=== PATIENT | female | born 1950 | race Caucasian/White ===

== ENCOUNTER → 2017-01-31 | Outpatient (CLI) | payer BC ==
[~2017-01-31] MED LIST: ACTOS 15MG TAB15 MG PO; ADALAT; ADALAT CC30 MG PO; AVELOX; BYETTA 10M600 MCG/SY SC; CELEXA; EPA FISH OIL1000 MG; EVISTA 60MG60 MG/TAB PO; GLUCOPHAGE850 MG/TAB PO; GLUCOTROL 5M5 MG/TAB; GLUCOTROL 5M5 MG/TAB PO; IRON325 MG PO; JANUVIA25 MG PO; LEVEMIR FLEXPEN; LIPITOR 40MG TA40 MG PO; LOPID 600M600 MG/TAB PO; MAREPA1200 MG PO; MED FOR DEPRESSION; METFORMIN; NORCO 325 MG-51 TAB PO; PEXEVA40 MG PO; PHENERGAN 25 TA25 MG PO; PHENERGAN25 MG RC; PRILOSEC40 MG PO; PROTONIX 40MG T40 MG PO; PROTONIX20 MG PO; VICOPROFEN 7.51 TAB PO; VICTOZA6 MG/ML SC; VYTORIN; [UNRECOGNIZED DRUG - OTHER]; [UNRECOGNIZED DRUG - OTHER] PO
== END ==
LOC: MC.RAD 08:00
DX: Z12.39 Encounter for other screening for malignant neoplasm of breast (principal)

== ENCOUNTER → 2017-02-25 | Outpatient (CLI) | payer BC | LOC: COL.RAD 10:30 | DX: R74.8 Abnormal levels of other serum enzymes (principal); K75.81 Nonalcoholic steatohepatitis (NASH) ==

== ENCOUNTER → 2018-03-01 | Outpatient (CLI) | payer BC | LOC: COL.RAD 10:29 | DX: K75.81 Nonalcoholic steatohepatitis (NASH) (principal); Z90.49 Acquired absence of other specified parts of digestive tract ==

== ENCOUNTER → 2018-03-20 | Outpatient (CLI) | payer BC | LOC: MC.RAD 09:51 | DX: Z12.31 Encounter for screening mammogram for malignant neoplasm of breast (principal) ==

== ENCOUNTER 2018-03-27 19:14 | Observation (INO) | payer BC, MEDICARE ==
[~2018-03-27] VITALS: Ht 154.9 cm; Wt 69.4 kg
[2018-03-27 20:06] LABS: BASO # 0.1 (0.0-0.2); BASO % 0.7 % (0.0-2.0); EOS # 0.3 (0.0-0.7); EOS % 3.5 % (0-4.0); GRAN # 4.5 (1.4-6.5); GRAN % 63.7 % (42.2-75.2); HEMATOCRIT 32.3 % (37.0-47.0); HEMOGLOBIN 10.5 g/dl (12.5-16.0); LYMPH # 1.5 (1.2-3.4); LYMPH % 20.7 % (20.0-51.0); MEAN CELL VOLUME 84 fl (80.0-100.0); MEAN CORPUSCULAR HEMOGLOBIN 27 pg (27.0-31.0); MEAN CORPUSCULAR HGB CONC 33 g/dl (33.0-37.0); MEAN PLATELET VOLUME 10.4 fl (7.4-10.4); MONO # 0.8 (0.1-0.6); MONO % 10.6 % (1.7-9.3); PLATELET COUNT 263 K/mm3 (130-400); RED BLOOD COUNT 3.84 M/mm3 (4.10-5.30); REDCELL DISTRIBUTION WIDTH-CV 14.5 % (11.5-14.5)
[2018-03-27 20:15] LABS: ALBUMIN 4.8 gm/dL (3.5-5.0); BILIRUBIN,TOTAL 0.4 mg/dL (0.0-1.0); C-REACTIVE PROTEIN 3.4 mg/dL (0.0-0.9); CALCIUM 9.6 mg/dL (8.4-10.2); CREATININE, serum 1.37 mg/dL (0.52-1.25); TOTAL PROTEIN 8.5 gm/dL (6.4-8.2)
[2018-03-28] VITALS (8 sets, daily range): BP systolic 97–108; BP diastolic 40–58; PULSE 71–74; TEMP 97.6–98.5
[2018-03-28] MEDS ORDERED: PRINIVIL20 MG PO (04:05)
[2018-03-28] MEDS ORDERED: PAXIL CR37.5 MG PO (04:07)
[2018-03-28] MEDS ORDERED: MOTRIN 600600 MG/TAB PO (09:14)
[2018-03-28] MEDS ORDERED: PERCOCET 325 MG1 TA2 PO (09:15)
== END 2018-03-28 13:45 | disposition home or self-care (01) ==
LOC: COL.ER 19:14 → MEDICAL 21:35
PROVIDERS: Emergency Medicine
DX: K35.80 Unspecified acute appendicitis (principal); K38.8 Other specified diseases of appendix; K38.1 Appendicular concretions; E11.9 Type 2 diabetes mellitus without complications; Z79.4 Long term (current) use of insulin; I10 Essential (primary) hypertension; J45.909 Unspecified asthma, uncomplicated; K21.9 Gastro-esophageal reflux disease without esophagitis; D64.9 Anemia, unspecified; Z80.0 Family history of malignant neoplasm of digestive organs; Z80.1 Family history of malignant neoplasm of trachea, bronchus and lung; Z80.2 Family history of malignant neoplasm of other respiratory and intrathoracic organs
CPT/HCPCS: J0696; J1100; J1170; J2405; J2704; J2710; J3010; J7030; Q9967

== ENCOUNTER → 2019-03-05 | Outpatient (CLI) | payer BC ==
[~2019-03-05] MED LIST changes: +MOTRIN 600600 MG/TAB PO; +PAXIL CR37.5 MG PO; +PERCOCET 325 MG1 TA2 PO; +PRINIVIL20 MG PO
== END ==
LOC: COL.RAD 07:58
DX: K76.0 Fatty (change of) liver, not elsewhere classified (principal); Z90.49 Acquired absence of other specified parts of digestive tract

== ENCOUNTER → 2019-04-24 | Outpatient (CLI) | payer BC | LOC: MC.RAD 15:38 | DX: Z12.31 Encounter for screening mammogram for malignant neoplasm of breast (principal) ==

== ENCOUNTER → 2019-08-08 | Outpatient (CLI) | payer MEDICARE, OTHER | LOC: MC.RAD 13:00 | DX: N64.89 Other specified disorders of breast (principal); N63.20 Unspecified lump in the left breast, unspecified quadrant | CPT/HCPCS: G0279 ==

== ENCOUNTER → 2019-08-13 | Outpatient (CLI) | payer MEDICARE, OTHER | LOC: MC.RAD 09:57 | DX: N63.20 Unspecified lump in the left breast, unspecified quadrant (principal); Z98.82 Breast implant status ==

== ENCOUNTER 2019-08-28 06:44 | Day surgery (SDC) | payer MEDICARE, OTHER ==
[2019-08-28] VITALS (7 sets, daily range): BP systolic 120–142; BP diastolic 48–79; PULSE 62–78; TEMP 97.6–97.7
[~2019-08-28] VITALS: Ht 154.9 cm; Wt 69.7 kg
[~2019-08-28 06:44] MED LIST changes: +LEVEMIR FLEX100 U/ML SQ; -LEVEMIR FLEXPEN
[2019-08-28] MEDS ORDERED: LOPID 600M600 MG/TAB PO (08:17)
[2019-08-28] MEDS ORDERED: OMEGA-3 1000 MG1 CAP PO (08:20)
[2019-08-28] MEDS ORDERED: MILK THISTLE150 MG PO (08:21)
[2019-08-28] MEDS ORDERED: TYLENOL 500MG500 MG PO (08:22)
[2019-08-28] MEDS ORDERED: OZEMPIC0.25 MG/0. SQ (08:23)
[2019-08-28 08:24] LABS: CALCIUM 9.9 mg/dL (8.4-10.2); CREATININE, serum 1.43 (0.52-1.25); POTASSIUM 5.1 mmol/L (3.4-5.0)
--- NOTE | 2019-08-28 08:24 | NUR ---
TO RM 6 FROM RADIOLOGY. CALL LIGHT IN REACH AT BEDSIDE.
--- NOTE | 2019-08-28 10:01 | NUR ---
RECEIVED NEW WARM BLANKET. PATIENT RESTING QUIETLY
--- NOTE | 2019-08-28 12:08 | NUR ---
WENT TO RADIOLOGY AND BACK TO RM. PATIENT RESTING QUIETLY
[2019-08-28] MEDS ORDERED: NORCO 325 MG-51 TAB PO (17:11)
--- NOTE | 2019-08-28 17:50 | NUR ---
Arrives to room 331 from PACU with RN at side. Dressings and bandaide to Left breast CDI. Denies complaints of pain. Request coffee. at side.
--- NOTE | 2019-08-28 23:06 | NUR ---
PATIENT DISCHARGING. DRESSED INDEPENDENTLY. DRESSINGS TO L BREAST CDI. 20 ML OF DARK RED BLOOD DRAINED FROM ROSAURA. PATIENT TEACHING DONE REGARDING DRESSING CHANGES AND ROSAURA DRAIN. IV TO R HAND DISCONTINUED, BANDAID APPLIED. AMBULATED TO BATHROOM AND VOIDED WITHOUT ISSUE. PATIENT DISCHARGED AT 2049 VIA WHEELCHAIR WITH FAMILY TO HOME.
== END 2019-08-28 20:50 | disposition home or self-care (01) ==
LOC: SDCO 06:44 → JCC 17:45 → SDCO 20:50
PROVIDERS: Nurse Anesthetist, Certified Registered
DX: C50.112 Malignant neoplasm of central portion of left female breast (principal); C77.3 Secondary and unspecified malignant neoplasm of axilla and upper limb lymph nodes; F32.9 Major depressive disorder, single episode, unspecified; E78.5 Hyperlipidemia, unspecified; Z86.14 Personal history of Methicillin resistant Staphylococcus aureus infection; I12.9 Hypertensive chronic kidney disease with stage 1 through stage 4 chronic kidney disease, or unspecified chronic kidney disease; E11.22 Type 2 diabetes mellitus with diabetic chronic kidney disease; N18.9 Chronic kidney disease, unspecified; Z79.84 Long term (current) use of oral hypoglycemic drugs; Z17.0 Estrogen receptor positive status [ER+]; K75.81 Nonalcoholic steatohepatitis (NASH)
CPT/HCPCS: OP; A9541; J0690; J1100; J1815; J2250; J2405; J2704; J3010; J7030

== ENCOUNTER → 2019-09-25 | Outpatient (CLI) | payer MEDICARE, OTHER ==
[~2019-09-25] VITALS: Ht 154.9 cm; Wt 65.4 kg
[~2019-09-25] MED LIST changes: +MILK THISTLE150 MG PO; +OMEGA-3 1000 MG1 CAP PO; +OZEMPIC0.25 MG/0. SQ; +TYLENOL 500MG500 MG PO
[2019-09-25 09:56] VITALS: BP 149/76; PULSE 63
[2019-09-25 10:58] VITALS: BP 183/90; PULSE 80
--- NOTE | 2019-09-25 11:20 | NUR ---
PT AMBULATED WITH STAFF AND FAMILY TO FRONT LOBBY. DROVE HOME.
== END ==
LOC: COL.RAD 09:36
DX: C50.112 Malignant neoplasm of central portion of left female breast (principal); E11.9 Type 2 diabetes mellitus without complications

== ENCOUNTER → 2019-10-03 | Outpatient (CLI) | payer MEDICARE, OTHER | LOC: COL.VAS 13:53 | DX: Z51.11 Encounter for antineoplastic chemotherapy (principal); C50.112 Malignant neoplasm of central portion of left female breast; I35.0 Nonrheumatic aortic (valve) stenosis ==

== ENCOUNTER 2020-01-03 14:22 | Inpatient (IN) | payer MEDICARE, OTHER ==
[~2020-01-03] VITALS: Ht 157.5 cm; Wt 78.4 kg
[2020-01-03 15:05] LABS: MEAN CELL VOLUME 80 fl (80.0-100.0); MEAN CORPUSCULAR HGB CONC 33 g/dl (33.0-37.0); MEAN PLATELET VOLUME 9.1 fl (7.4-10.4); PLATELET COUNT 515 K/mm3 (130-400); REDCELL DISTRIBUTION WIDTH-CV 20.9 % (11.5-14.5)
[2020-01-03 15:10] LABS: HEMATOCRIT 23.1 % (37.0-47.0); HEMOGLOBIN 7.7 g/dl (12.5-16.0); MEAN CORPUSCULAR HEMOGLOBIN 27 pg (27.0-31.0)
[2020-01-03] MEDS ORDERED: INSHUMULINR SQ (15:11)
[2020-01-03] MEDS ORDERED: HUMULIN N 10100 U/ML SQ (15:12)
[2020-01-03] MEDS ORDERED: ROXANOL 20MG20 MG/ML PO (15:13)
[2020-01-03] MEDS ORDERED: ZOVIRSUSP PO (15:14)
[2020-01-03] MEDS ORDERED: ZOVIRAX 200MG200 MG PO (15:14)
[2020-01-03 15:15] LABS: ALBUMIN 3.7 gm/dL (3.5-5.0); BILIRUBIN,TOTAL 0.4 mg/dL (0.0-1.0); CALCIUM 8.3 mg/dL (8.4-10.2); CREATININE, serum 1.98 (0.52-1.25)
[2020-01-03 15:18] VITALS: BP 114/63; PULSE 79
[2020-01-03 15:24] LABS: TROPONIN-I 0.055 ng/mL (0.000-0.035)
[2020-01-03 15:28] LABS: C-REACTIVE PROTEIN 18.3 mg/dL (0.0-0.9)
[2020-01-03 15:52] LABS: BAND 9 % (0-10); BASOPHIL 1 % (0-2); EOSINOPHIL 7 % (0-4); LYMPHOCYTE 11 % (20.0-51.0); METAMYELOCYTE 16 % (0-0); MYELOCYTE 10 % (0-0); NEUTROPHILS 18 % (42.0-75.2)
[2020-01-03 15:55] LABS: MICROCYTOSIS 1+; PLATELET ESTIMATE INCREASED (NORMAL)
[2020-01-03 15:56] LABS: ANISOCYTOSIS 2+
[2020-01-03 15:57] LABS: BURR CELLS 1+; SCHISTOCYTES 1+
[2020-01-03 17:15] VITALS: BP 122/49; PULSE 85; TEMP 98.4
--- NOTE | 2020-01-03 19:19 | NUR ---
Patient resting in bed. & Diamond With ortho rounded. Orders obtained. Inital, med rec & 5 page completed. Ivf per orders to Rac. Patient blood sugar stable, minimal appetite. Left shoulder pain significant. Roxnol & tylenol for pain management. ice pack & sling & shayla wrap for swathe adjusted per ortho reccommendations. Bedside rprot to Kane
[2020-01-03 20:30] VITALS: BP 122/56; PULSE 92; TEMP 98.5
--- NOTE | 2020-01-03 20:30 | NUR ---
Pt. sitting up in bed at this time. Pt. is A&OX3, assessment complete. IV to rt. ac patent, IV fluids infusing per orders. Pt. has sling to lt. arm, with an shayla wrap around body to help hold arm still. Pt. wishes to have the shayla wrap removed. So we took it off. Pt. reports pain at a 6 on pain scale, will give pain meds per orders. Pt. denies further needs at this time.
[2020-01-03 22:35] LABS: POTASSIUM 3.5 mmol/L (3.4-5.0)
[2020-01-03 22:52] LABS: TROPONIN-I 6 HR POST INITIAL 0.064 ng/mL (0.000-0.034)
[2020-01-04] VITALS (18 sets, daily range): BP systolic 96–141; BP diastolic 40–84; PULSE 65–102; TEMP 97.8–99.7
--- NOTE | 2020-01-04 05:10 | NUR ---
Pt. sitting up in bed at this time. Pt. sounds more wheezy this am. Auscultated lung sounds to find pt. has experatory and inspretory wheezing throughout all lung graham. SERGEY Carney notified. New orders received.
[2020-01-04 05:59] LABS: MEAN CELL VOLUME 80 fl (80.0-100.0); MEAN CORPUSCULAR HGB CONC 33 g/dl (33.0-37.0); MEAN PLATELET VOLUME 9.3 fl (7.4-10.4); PLATELET COUNT 520 K/mm3 (130-400); RED BLOOD COUNT 2.44 M/mm3 (4.10-5.30); REDCELL DISTRIBUTION WIDTH-CV 21.5 % (11.5-14.5)
[2020-01-04 06:01] LABS: HEMATOCRIT 19.6 % (37.0-47.0); MEAN CORPUSCULAR HEMOGLOBIN 27 pg (27.0-31.0)
[2020-01-04 06:02] LABS: HEMOGLOBIN 6.5 g/dl (12.5-16.0)
[2020-01-04 06:15] LABS: CALCIUM 7.8 mg/dL (8.4-10.2); CHOLESTEROL RISK RATIO 8.5; CREATININE, serum 2.04 (0.52-1.25); POTASSIUM 3.6 mmol/L (3.4-5.0)
[2020-01-04 06:29] LABS: TROPONIN-I 0.096 ng/mL (0.000-0.035)
[2020-01-04 07:58] LABS: BAND 31 % (0-10); BASOPHIL 2 % (0-2); LYMPHOCYTE 7 % (20.0-51.0); METAMYELOCYTE 18 % (0-0); MYELOCYTE 7 % (0-0); NEUTROPHILS 9 % (42.0-75.2); NUCLEATED RED BLOOD CELL 1 (0-6); PLATELET ESTIMATE INCREASED (NORMAL)
[2020-01-04 08:00] LABS: MICROCYTOSIS 1+; OVALOCYTES 1+; POLYCHROMASIA 1+; SCHISTOCYTES 1+; TEAR DROP CELLS 1+
--- NOTE | 2020-01-04 08:00 | NUR ---
Patient asked for help going to the bathroom. She became very unsteady and was not able to sit on the toilet by herself. She has pinpoint pupils. Notified Bhargav DUNCAN of patients change in status. Patient is oriented, she was able to answer questions appropriately but is very drowsy and keeps falling asleep while talking. It took 2 nurses to assist patient back to bed. With bedside shift report at 0650 patient was alert and oriented, not drowsy at all. Patient was able answer questions appropriately. No other changes at this time. Will continue to monitor.
[2020-01-04 08:01] LABS: ANISOCYTOSIS 2+
[2020-01-04 08:50] LABS: PATHOLOGY DIFF REVIEW OK +
--- NOTE | 2020-01-04 12:30 | NUR ---
The patient was sleeping and hard to rouse. SW then contacted the patient's , Luis to complete initial intake. The patient lives with Luis in [place]. The patient does not use DME and is independent with ADLs. The patient's PCP is Dr. Palomino. The patient receives medications from [facility] or [facility] in [place]. The patient's last cancer treatment was on 12/24 and was supposed to have another one on 12/31. Her next appointment is on 01/07. The patient does not receives any home health serivces. The patient does not have advanced directives in the EMR. PT/OT were ordered for the patient. Will continue to monitor for recommendations.
--- NOTE | 2020-01-04 13:45 | NUR ---
Patient is becoming more confused. She continues to be drowsy but now is not able to answer questions appropriately. She keeps asking why she is in the hospital and what are we doing to help her. We are trying to transfused 2 units of blood but now patient is not able to sign consent for the transfusion. Have been attempting to call her but he is not answering the phone at this time. Bhargav DUNCAN notified of patients change in confusion, CT has been ordered. No other changes at this time. Call light within reach. Bed alarm set. Will continue to monitor. Will start transfusion once CT is completed and we are able to get consent.
--- NOTE | 2020-01-04 17:20 | NUR ---
Blood transfusion is started. Explained to patient the signs of a transfusion reaction. She verbalized understanding. Started rate at 50ml an hour. Vital signs are stable. This nurse is at bedside. Will continue to monitor.
--- NOTE | 2020-01-04 17:40 | NUR ---
Patient is doing well, she is tolerating the transfusion well. Denies any symptoms, chest pain, shortness of breath, pain at transfusion site or any other changes. Patient is resting comfortably at this time. Tylenol given for pain to left shoulder. Patient is alert and oriented at this time. Call light within reach.
--- NOTE | 2020-01-04 19:00 | NUR ---
Patients confusion is better. She still asks the same questions multiple times. She stated her pain is increasing, explained we are holding her roxanol due to the altered mental status today. She verbalized understanding. Tylenol given for pain. Patient has some nausea this morning but did not want zofran for the nausea. No other changes at this time. Call light within reach.
--- NOTE | 2020-01-04 22:15 | NUR ---
#2 UNIT PRBC'S STARTED TO RT AC SPACE . REVIEWED S/S REACTION WITH PT. PT VERBALIZED UNDERSTANDING.
--- NOTE | 2020-01-04 22:24 | NUR ---
PT RESTING WITH EYES CLOSED. NO RESP DISTRESS. O2 2LNC. HAS SPORATIC CLEAR EMESIS IN SMALL AMTS.
--- NOTE | 2020-01-04 22:30 | NUR ---
NO S/S OF BLOOD REACTION. INFUSING BLOOD AT 100CC/HR TO RT AC. IV POSITIONAL WITH BEND OF ARM.
[2020-01-05] VITALS (11 sets, daily range): BP systolic 112–139; BP diastolic 43–63; PULSE 70–85; TEMP 98–98.7
--- NOTE | 2020-01-05 01:57 | NUR ---
LAB NOTIFIED BLOOD COMPLETED.
--- NOTE | 2020-01-05 02:25 | NUR ---
IV PUMP READS OCCLUSION FREQUENTLY D/T RT AC SITE PLACEMENT. SITE FLUSHES WELL. AGATHA EARL.
--- NOTE | 2020-01-05 03:15 | NUR ---
LAB HERE TO DRAW MORNING LABS
[2020-01-05 03:25] LABS: COLLECTION METHOD CATHETER
[2020-01-05 03:31] LABS: MEAN CELL VOLUME 81 fl (80.0-100.0); MEAN CORPUSCULAR HGB CONC 34 g/dl (33.0-37.0); PLATELET COUNT 447 K/mm3 (130-400); RED BLOOD COUNT 3.55 M/mm3 (4.10-5.30); REDCELL DISTRIBUTION WIDTH-CV 18.7 % (11.5-14.5)
[2020-01-05 03:35] LABS: PH 5 (5-8); URINE APPEARANCE Clear; URINE BACTERIA Rare /hpf; URINE BILIRUBIN Negative (NEGATIVE); URINE BLOOD Negative (NEGATIVE); URINE COLOR Yellow; URINE GLUCOSE Negative (NEGATIVE); URINE KETONE Negative (NEGATIVE); URINE LEUKOCYTE ESTERASE Negative (NEGATIVE); URINE NITRATE Negative (NEGATIVE); URINE PROTEIN(semi-quant) Negative (NEGATIVE); URINE RBC 0-2 /hpf; URINE UROBILINOGEN Negative (NEGATIVE)
[2020-01-05 03:37] LABS: HEMATOCRIT 28.8 % (37.0-47.0); HEMOGLOBIN 9.8 g/dl (12.5-16.0); MEAN CORPUSCULAR HEMOGLOBIN 28 pg (27.0-31.0)
[2020-01-05 03:40] LABS: CALCIUM 8.5 mg/dL (8.4-10.2); CREATININE, serum 2.11 (0.52-1.25); POTASSIUM 3.5 mmol/L (3.4-5.0)
--- NOTE | 2020-01-05 03:41 | NUR ---
NOTIFIED BARON THOMSON OF LAB RESULTS- WBC,HBG,UA,K+. ALSO PTS CONTINUED N/V. NPO STATUS- TAKING LITTLE SIPS OF ICE. NEED NEW ORDER FOR IVF'S POST BLOOD TRANSFUSION. NEW ORDER FOR PHENERGAN. NO IVF'S AT THIS TIME.
--- NOTE | 2020-01-05 04:23 | NUR ---
PT DOZING NOW. NO S/S NAUSEA OR PAIN.
[2020-01-05 04:25] LABS: ANISOCYTOSIS 2+; BAND 47 % (0-10); LYMPHOCYTE 8 % (20.0-51.0); METAMYELOCYTE 18 % (0-0); MYELOCYTE 2 % (0-0); NEUTROPHILS 16 % (42.0-75.2)
[2020-01-05 04:26] LABS: PLATELET ESTIMATE INCREASED (NORMAL)
--- NOTE | 2020-01-05 05:34 | NUR ---
PT HAS BEEN RESTING SINCE PHENERGAN IV. NO FURTHER VOMITING. VS STABLE ALTHOUGH DIASTOLIC ALITTLE LOW. CALL LIGHT IN REACH. BED ALARM SET. PT WANTED BOTH SIDERAILS UP.
--- NOTE | 2020-01-05 10:51 | NUR ---
PATIENT RESTING IN BED. A&O X3. SLING TO LEFT ARM. IV TO RF IS CDI WITH FLUIDS INFUSING PER ORDER. ICE PACK TO LEFT SHOULDER. ASSESSMENT COMPLETE. NO FURTHER NEEDS AT THIS TIME.
--- NOTE | 2020-01-05 10:56 | NUR ---
PATIENT SHOWERED AND BACK IN BED. PHYSICAL THERAPY IN ROOM.
--- NOTE | 2020-01-05 15:02 | NUR ---
PATIENT UP WITH ASSISTANCE TO THE BATHROOM AND BRUSHED HER TEETH. PATIENT IS NOW RESTING IN BED WITH NO FURTHER NEEDS. WILL CONTINUE TP MONITOR.
--- NOTE | 2020-01-05 19:16 | NUR ---
Patient has done well throughout the day. KENJI maintained in sling, denies pain to arm. States she has been feeling a lot better today as opposed to yesterday. Has been up ambulating with cane, x1 assit, throughout the day. Tolerating diet without difficulties. Fluids infusing per orders to right forarm IV. Denies further needs at this time. Reported off to night monitor.
--- NOTE | 2020-01-05 22:24 | NUR ---
PATIENT DOING WELL TONIGHT. ALERT AND ORIENTED. C/O MILD PAIN TO L SHOULDER, PRN TYLENOL GIVEN AND ICE APPLIED. IV TO R FA INFUSING WITHOUT ISSUE. TOOK MEDICATIONS WITHOUT ISSUE. WBG 174, 4 UNITS NOVOLOG GIVEN. AMBULATING TO BATHROOM WITH X1 ASSIST AND USE OF WALKER. NO FURTHER NEEDS AT THIS TIME. WILL CONTINUE TO MONITOR.
[2020-01-06 05:06] VITALS: BP 156/70; PULSE 77; TEMP 97.5
[2020-01-06 06:12] LABS: MEAN CELL VOLUME 80 fl (80.0-100.0); MEAN CORPUSCULAR HGB CONC 34 g/dl (33.0-37.0); MEAN PLATELET VOLUME 9.2 fl (7.4-10.4); PLATELET COUNT 437 K/mm3 (130-400); RED BLOOD COUNT 3.58 M/mm3 (4.10-5.30); REDCELL DISTRIBUTION WIDTH-CV 19.8 % (11.5-14.5)
[2020-01-06 06:15] LABS: HEMATOCRIT 28.6 % (37.0-47.0); HEMOGLOBIN 9.6 g/dl (12.5-16.0); MEAN CORPUSCULAR HEMOGLOBIN 27 pg (27.0-31.0)
[2020-01-06 06:23] LABS: CALCIUM 8.3 mg/dL (8.4-10.2); CREATININE, serum 1.22 (0.52-1.25); POTASSIUM 3.7 mmol/L (3.4-5.0)
[2020-01-06 07:50] VITALS: BP 160/62; PULSE 78; TEMP 98.7
--- NOTE | 2020-01-06 08:58 | NUR ---
Patient resting in bed call light in reach and denies questions at this time. Patient reported not having a BM since this past Tuesday and has requested bowel meds. Will discuss with physician.
[2020-01-06 10:07] LABS: BAND 20 % (0-10); LYMPHOCYTE 7 % (20.0-51.0); NEUTROPHILS 56 % (42.0-75.2)
[2020-01-06 10:08] LABS: ANISOCYTOSIS 3+; PLATELET ESTIMATE NORMAL (NORMAL)
[2020-01-06 10:09] LABS: OVALOCYTES 1+
--- NOTE | 2020-01-06 10:30 | NUR ---
Patient port-a-cath accessed for blood cultures at this time. Blood sample obtained and handed to lab personnel on second attempt to access port.
--- NOTE | 2020-01-06 11:37 | NUR ---
IV fluids were stopped per orders. Patient resting in bed call light in reach and denies questions at this time.
[2020-01-06 11:44] VITALS: BP 134/50; PULSE 78; TEMP 98.4
--- NOTE | 2020-01-06 14:17 | NUR ---
Patient reported having bloody sputum times one. Will continue to monitor.
--- NOTE | 2020-01-06 14:19 | NUR ---
Call placed to Janice regarding bloody sputum. She will hold Heprin at this time. Will continue to monitor.
[2020-01-06 15:47] VITALS: BP 140/49; PULSE 79; TEMP 97.8
--- NOTE | 2020-01-06 19:30 | NUR ---
Patient had orders for CT scan to be completed see results. Received report from Dr. Harris that small right pneumothorax was found. PERLA Camacho was updated on this. Dr. Caban assessed patient see new orders for CXRays the next three days to monitor. Patient resting in bed at this time, call light in reach with slip proof socks on. Patient reported not having a bowel movement since this past Tuesday. Patient given miralax this morning and then suppository this evening. This nurse reported off to night nurse.
[2020-01-06 21:01] VITALS: BP 149/85; PULSE 81; TEMP 97.9
--- NOTE | 2020-01-06 22:50 | NUR ---
PATIENT DOING WELL TONIGHT. ALERT AND ORIENTED. C/O MILD PAIN TO L SHOULDER AND PRN TYLENOL GIVEN. PATIENT HAD LARGE SOFT BROWN BM THAT WAS SENT TO LAB AND GI PANEL WAS NEGATIVE. AMBULATING TO BATHROOM WITH STANDBY ASSIST AND USE OF WALKER WITHOUT ISSUE. PATIENT DENIES SHORTNESS OF BREATH AND DIFFICULTY BREATHING. STABLE ON ROOM AIR. NO FURTHER NEEDS AT THIS TIME. WILL CONTINUE TO MONITOR. CALL LIGHT WITHIN REACH.
[2020-01-07 01:18] VITALS: BP 153/53; PULSE 81; TEMP 98.7
[2020-01-07 05:12] VITALS: BP 169/71; PULSE 76; TEMP 97.6
[2020-01-07 08:01] VITALS: BP 150/62; PULSE 80; TEMP 98
[2020-01-07 08:06] LABS: MEAN CELL VOLUME 81 fl (80.0-100.0); MEAN CORPUSCULAR HGB CONC 33 g/dl (33.0-37.0); MEAN PLATELET VOLUME 9.4 fl (7.4-10.4); PLATELET COUNT 390 K/mm3 (130-400); RED BLOOD COUNT 3.33 M/mm3 (4.10-5.30); REDCELL DISTRIBUTION WIDTH-CV 20.6 % (11.5-14.5)
[2020-01-07 08:11] LABS: CALCIUM 7.9 mg/dL (8.4-10.2); CREATININE, serum 0.93 (0.52-1.25); HEMATOCRIT 27.1 % (37.0-47.0); MEAN CORPUSCULAR HEMOGLOBIN 27 pg (27.0-31.0); POTASSIUM 3.5 mmol/L (3.4-5.0)
[2020-01-07 09:13] LABS: BAND 42 % (0-10); LYMPHOCYTE 4 % (20.0-51.0); METAMYELOCYTE 7 % (0-0); MYELOCYTE 4 % (0-0); NEUTROPHILS 39 % (42.0-75.2)
[2020-01-07 09:14] LABS: ANISOCYTOSIS 2+; PLATELET ESTIMATE NORMAL (NORMAL)
--- NOTE | 2020-01-07 11:04 | NUR ---
Patient tolerated diet well this AM. Patient given prn Tylenol for right shoulder pain. Will continue to monitor.
--- NOTE | 2020-01-07 11:19 | NUR ---
First visit from the medical administrative. No needs right now.
[2020-01-07 11:33] VITALS: BP 103/89; PULSE 72; TEMP 97.3
--- NOTE | 2020-01-07 12:58 | NUR ---
PT informed DANITA that they are recommending a quad cane for the patient. DANITA then met with the patient to review discharge plan and to discuss the quad cane. The patient reports that she would be interested in getting a quad cane and chose to order it from [facility]. DANITA contacted and faxed the quad cane order to Milla at [facility]. The patient reports that she would like to return home upon discharge. DANITA discussed home health services. The patient reports that she is thinking that home health would be a good idea, but would like to talk to her about it first. She was agreeable for DANITA to contact her . DANITA then contacted the patient's , Luis, and discussed home health. Luis reports that he would like to talk to the patient himself about home health, before proceeding with a referral. DANITA provided him with DANITA's phone number. DANITA to continue to follow.
[2020-01-07] MEDS ORDERED: SPORANOX100 MG PO (15:37)
[2020-01-07 15:51] VITALS: BP 173/76; PULSE 88; TEMP 97.8
--- NOTE | 2020-01-07 17:00 | NUR ---
Patient tolerated po potassium today. Potassium will be drawn tomorrow morning per protocol. Patient continues to have fine crackles in bilateral lungs, will continue to monitor. Patient left arm and hand had mild edema this afternoon. This was reported off to night nurse.
--- NOTE | 2020-01-07 21:30 | NUR ---
Pt. sitting up in bed at this time. Pt. is A&OX3, assessment complete. INT to rt. forearm patent. Portacath to rt. chest, accessed but not in use at this time. Pt. reports mild pain to lt. arm at this time. Pt. repositioned for comfort. Pt. denies further needs, call light within reach.
[2020-01-07 21:52] VITALS: BP 169/68; PULSE 83; TEMP 98.4
[2020-01-08 04:00] VITALS: BP 147/66; PULSE 82; TEMP 98.8
[2020-01-08 06:35] LABS: MEAN CELL VOLUME 81 fl (80.0-100.0); MEAN CORPUSCULAR HGB CONC 33 g/dl (33.0-37.0); PLATELET COUNT 360 K/mm3 (130-400); REDCELL DISTRIBUTION WIDTH-CV 21.1 % (11.5-14.5)
[2020-01-08 06:50] LABS: CALCIUM 8.2 mg/dL (8.4-10.2); CREATININE, serum 0.84 (0.52-1.25); MAGNESIUM 1.3 mg/dL (1.6-2.3); POTASSIUM 3.9 mmol/L (3.4-5.0)
[2020-01-08 07:09] LABS: HEMATOCRIT 28.3 % (37.0-47.0); HEMOGLOBIN 9.4 g/dl (12.5-16.0); MEAN CORPUSCULAR HEMOGLOBIN 27 pg (27.0-31.0)
[2020-01-08 08:09] VITALS: BP 164/67; PULSE 77; TEMP 98.1
[2020-01-08 08:13] LABS: BAND 37 % (0-10); EOSINOPHIL 1 % (0-4); LYMPHOCYTE 5 % (20.0-51.0); METAMYELOCYTE 6 % (0-0); MYELOCYTE 7 % (0-0); NEUTROPHILS 41 % (42.0-75.2); NUCLEATED RED BLOOD CELL 2 (0-6)
[2020-01-08 08:14] LABS: OVALOCYTES 1+; PLATELET ESTIMATE NORMAL (NORMAL); TEAR DROP CELLS 1+
--- NOTE | 2020-01-08 11:14 | NUR ---
DANITA met with the patient to discuss HHS. The patient states that her and her do not want HHS. They are going to "try it on their own." SW informed the patient if she wanted HHS after hospitalization they can contact the PCP. DANITA contacted [facility] and asked for the patient's cane be delivered this day. Will continue to follow.
[2020-01-08 11:36] VITALS: BP 139/50; PULSE 69; TEMP 98
[2020-01-08 15:55] VITALS: BP 152/53; PULSE 71; TEMP 97.9
--- NOTE | 2020-01-08 18:30 | NUR ---
Patient did well today. Minimal complaints of pain. No complaints of nausea. She has been awake on the phone most the day. Had loose stools twice today, this morning and early afternoon. Continues to void without problems. No other changes at this time. Call light within reach.
[2020-01-08 20:30] VITALS: BP 165/56; PULSE 79; TEMP 98.5
--- NOTE | 2020-01-08 20:30 | NUR ---
Pt. sitting up in chair at this time. Pt. is A&OX3, assessment complete. Port to rt. chest patent, positive blood return noted. Pt. reports pain to lt. shoulder at a 3 on pain scale, will give Tylenol. Pt. assisted with oral hygeine and bathroom needs then assisted to bed with standby assist. Pt. denies further needs, call light within reach.
[2020-01-09 05:30] VITALS: BP 175/70; PULSE 80; TEMP 98
[2020-01-09 06:15] LABS: MEAN CELL VOLUME 83 fl (80.0-100.0); MEAN CORPUSCULAR HGB CONC 33 g/dl (33.0-37.0); MEAN PLATELET VOLUME 8.9 fl (7.4-10.4); PLATELET COUNT 335 K/mm3 (130-400); RED BLOOD COUNT 3.47 M/mm3 (4.10-5.30); REDCELL DISTRIBUTION WIDTH-CV 21.2 % (11.5-14.5)
[2020-01-09 06:20] LABS: HEMATOCRIT 28.7 % (37.0-47.0); HEMOGLOBIN 9.5 g/dl (12.5-16.0); MEAN CORPUSCULAR HEMOGLOBIN 27 pg (27.0-31.0)
[2020-01-09 06:21] LABS: CALCIUM 8.4 mg/dL (8.4-10.2); CREATININE, serum 0.8 (0.52-1.25); POTASSIUM 3.8 mmol/L (3.4-5.0)
--- NOTE | 2020-01-09 06:57 | NUR ---
report from Rashid DENIS.
[2020-01-09 07:23] VITALS: BP 164/89; PULSE 73; TEMP 98.6
[2020-01-09 07:47] LABS: BAND 28 % (0-10); HYPOCHROMIA 2+; LYMPHOCYTE 3 % (20.0-51.0); METAMYELOCYTE 4 % (0-0); MYELOCYTE 2 % (0-0); NEUTROPHILS 59 % (42.0-75.2); NUCLEATED RED BLOOD CELL 1 (0-6); PLATELET ESTIMATE NORMAL (NORMAL); SCHISTOCYTES 1+
--- NOTE | 2020-01-09 08:22 | NUR ---
PT UP TO RECLINER FOR BREAKFAST, PO MEDS GIVEN DIRECTED. PT OUT TO [facility] WITH THERAPY AMBULATING WITH STEADY GAIT. DENIES NEEDS AT THIS TIME. PAIN WELL CONTROLLED WITH PO TYLENOL.
--- NOTE | 2020-01-09 10:50 | NUR ---
SW met with the patient to present IM form. The patient understood her rights. Due to COVID-19 social distancing precautions, the patient gave permission for SW to sign on her behalf. A copy was provided to the patient and original place in the chart.
[2020-01-09] MEDS ORDERED: OMNICEF 300MG300 MG PO (11:31)
[2020-01-09] MEDS ORDERED: NORVASC 5MG5 MG/TAB PO (11:35)
[2020-01-09] MEDS ORDERED: ASPIRIN E.C. 8181 MG PO (11:36)
--- NOTE | 2020-01-09 15:08 | NUR ---
discharge instructions reviewed with pt and family outside. verbalized understanding. prior to discharge port deaccessed per protocol with heparin flushed 5mls.
== END 2020-01-09 14:00 | disposition home or self-care (01) | DRG 562 ==
LOC: COL.ER 14:22 → SURG 15:53
PROVIDERS: Emergency Medicine; Hospitalist; Physician Assistant; ADMIT Internal Medicine
DX: S42.202A Unspecified fracture of upper end of left humerus, initial encounter for closed fracture (principal); J96.21 Acute and chronic respiratory failure with hypoxia; J18.9 Pneumonia, unspecified organism; N17.9 Acute kidney failure, unspecified; I50.30 Unspecified diastolic (congestive) heart failure; S27.0XXA Traumatic pneumothorax, initial encounter; T79.7XXA Traumatic subcutaneous emphysema, initial encounter; K21.9 Gastro-esophageal reflux disease without esophagitis; J45.909 Unspecified asthma, uncomplicated; E11.9 Type 2 diabetes mellitus without complications; C50.919 Malignant neoplasm of unspecified site of unspecified female breast; D64.9 Anemia, unspecified; R19.7 Diarrhea, unspecified; D47.3 Essential (hemorrhagic) thrombocythemia; I11.0 Hypertensive heart disease with heart failure; R41.82 Altered mental status, unspecified; T50.995A Adverse effect of other drugs, medicaments and biological substances, initial encounter; K59.00 Constipation, unspecified; E87.6 Hypokalemia; D72.829 Elevated white blood cell count, unspecified; W19.XXXA Unspecified fall, initial encounter; Y93.01 Activity, walking, marching and hiking; F32.9 Major depressive disorder, single episode, unspecified; R79.89 Other specified abnormal findings of blood chemistry; Z90.710 Acquired absence of both cervix and uterus; Z90.49 Acquired absence of other specified parts of digestive tract; Z90.89 Acquired absence of other organs; Z79.4 Long term (current) use of insulin; Z87.891 Personal history of nicotine dependence; Y92.029 Unspecified place in mobile home as the place of occurrence of the external cause
CPT/HCPCS: OP; 99222-AI; 99232-AI; 99233-AI; 99239; A4216; A9284; J0456; J0692; J1644; J1815; J2405; J2550; J3010; J3475; J7030; J7050; P9016; Q9967

== ENCOUNTER → 2020-03-27 | Outpatient (CLI) | payer MEDICARE, OTHER ==
[~2020-03-27] MED LIST changes: +ASPIRIN E.C. 8181 MG PO; +HUMULIN N 10100 U/ML SQ; +INSHUMULINR SQ; +NORVASC 5MG5 MG/TAB PO; +OMNICEF 300MG300 MG PO; +ROXANOL 20MG20 MG/ML PO; +SPORANOX100 MG PO; +ZOVIRAX 200MG200 MG PO; +ZOVIRSUSP PO
== END ==
LOC: COL.VAS 08:42
DX: C50.112 Malignant neoplasm of central portion of left female breast (principal); M79.89 Other specified soft tissue disorders; Z87.81 Personal history of (healed) traumatic fracture

== ENCOUNTER → 2020-04-14 | Outpatient (CLI) | payer MEDICARE, OTHER | LOC: ZCOL.LAB 17:43 | DX: M79.89 Other specified soft tissue disorders (principal) ==

== ENCOUNTER 2020-05-16 09:30 | Outpatient (RCR) | payer MEDICARE, OTHER ==
[2020-05-23] MEDS ORDERED: NORVASC2.5 MG PO (07:14)
[2020-05-23] MEDS ORDERED: VITAMIN C500 MG PO (07:16)
[2020-05-23] MEDS ORDERED: ROXICODONE 55 MG/TAB PO (07:18)
[2020-05-24] MEDS ORDERED: CARAFATE 1GM1 G PO (08:37)
== END 2020-07-09 | disposition home or self-care (01) ==
LOC: WSPT
DX: C50.912 Malignant neoplasm of unspecified site of left female breast (principal); Z17.0 Estrogen receptor positive status [ER+]; I89.0 Lymphedema, not elsewhere classified

== ENCOUNTER 2020-05-23 05:32 | Observation (INO) | payer MEDICARE, OTHER ==
[~2020-05-23] VITALS: Ht 154.9 cm; Wt 74.1 kg
[2020-05-23 06:14] LABS: BASO % 0.3 % (0.0-2.0); EOS % 0.2 % (0-4.0); GRAN # 12.8 (1.4-6.5); GRAN % 87.1 % (42.2-75.2); LYMPH # 0.5 (1.2-3.4); LYMPH % 3.1 % (20.0-51.0); MEAN CELL VOLUME 83 fl (80.0-100.0); MEAN CORPUSCULAR HGB CONC 32 g/dl (33.0-37.0); MEAN PLATELET VOLUME 9.6 fl (7.4-10.4); MONO # 1.3 (0.1-0.6); MONO % 8.6 % (1.7-9.3); PLATELET COUNT 280 K/mm3 (130-400); RED BLOOD COUNT 3.69 M/mm3 (4.10-5.30); REDCELL DISTRIBUTION WIDTH-CV 15.2 % (11.5-14.5)
[2020-05-23 06:15] LABS: HEMATOCRIT 30.6 % (37.0-47.0); HEMOGLOBIN 9.8 g/dl (12.5-16.0); INR 0.9 (0.8-3.0); MEAN CORPUSCULAR HEMOGLOBIN 27 pg (27.0-31.0); PROTHROMBIN TIME 10.2 SECONDS (9.7-12.8)
[2020-05-23 06:23] LABS: ALBUMIN 4.4 gm/dL (3.5-5.0); BILIRUBIN,TOTAL 0.4 mg/dL (0.0-1.0); CALCIUM 9.2 mg/dL (8.4-10.2); CREATININE, serum 2.31 (0.52-1.25); TOTAL PROTEIN 7.5 gm/dL (6.4-8.2)
[2020-05-23 06:44] LABS: MAGNESIUM 1.9 mg/dL (1.6-2.3)
[2020-05-23 06:57] LABS: GASTROCCULT POSITIVE; pH GASTRIC CONTENTS 4
[2020-05-23] MEDS ORDERED: NORVASC2.5 MG PO (07:14)
[2020-05-23] MEDS ORDERED: VITAMIN C500 MG PO (07:16)
[2020-05-23] MEDS ORDERED: ROXICODONE 55 MG/TAB PO (07:18)
[2020-05-23 09:41] VITALS: BP 130/60; PULSE 77; TEMP 98.2
[2020-05-23 11:20] VITALS: BP 151/72; PULSE 80; TEMP 98
[2020-05-23 13:19] LABS: HEMATOCRIT 28.1 % (37.0-47.0); HEMOGLOBIN 8.8 g/dl (12.5-16.0)
[2020-05-23 16:14] VITALS: BP 121/74; PULSE 81; TEMP 98.5
[2020-05-23 18:44] VITALS: BP 127/62; PULSE 73; TEMP 98.4
--- NOTE | 2020-05-23 19:29 | NUR ---
Pt resting in the room, returned to floor this afternoon from endoscopy after EGD performed, no C/O pain currently, VS have remained stable after the procedure, Pt tolerated the full liquid diet well.
--- NOTE | 2020-05-23 19:40 | NUR ---
Received report from Anam. Seen patient awake, lying in bed. She just finished eating her dinner. She has arm sling on her left shoulder. With IV on right AC infusing NS at 125ml/hr. She is independent in the room. She is alert and oriented.
[2020-05-24 00:01] VITALS: BP 122/40; PULSE 71; TEMP 98.1
[2020-05-24 00:31] VITALS: BP 124/44
--- NOTE | 2020-05-24 01:05 | NUR ---
Patient complains of pain on her left shoulder. Clinton PRN given.
--- NOTE | 2020-05-24 01:05 | NUR ---
Patient complains of pain on her left shoulder. Oxycodone given. Pain score of 6/10
[2020-05-24 01:19] LABS: HEMATOCRIT 24.6 % (37.0-47.0); HEMOGLOBIN 7.7 g/dl (12.5-16.0)
[2020-05-24 01:56] VITALS: BP 122/50
[2020-05-24 04:04] VITALS: BP 138/65; PULSE 78; TEMP 98
[2020-05-24 06:43] LABS: BASO % 0.5 % (0.0-2.0); EOS # 0.4 (0.0-0.7); EOS % 5.5 % (0-4.0); GRAN # 4.5 (1.4-6.5); GRAN % 71.2 % (42.2-75.2); LYMPH # 0.7 (1.2-3.4); LYMPH % 10.7 % (20.0-51.0); MEAN CELL VOLUME 85 fl (80.0-100.0); MEAN CORPUSCULAR HGB CONC 30 g/dl (33.0-37.0); MEAN PLATELET VOLUME 9.5 fl (7.4-10.4); MONO # 0.7 (0.1-0.6); MONO % 11.5 % (1.7-9.3); PLATELET COUNT 185 K/mm3 (130-400); RED BLOOD COUNT 3.26 M/mm3 (4.10-5.30); REDCELL DISTRIBUTION WIDTH-CV 15.4 % (11.5-14.5)
[2020-05-24 07:03] LABS: HEMATOCRIT 27.7 % (37.0-47.0); HEMOGLOBIN 8.4 g/dl (12.5-16.0); MEAN CORPUSCULAR HEMOGLOBIN 26 pg (27.0-31.0)
[2020-05-24 07:27] LABS: CALCIUM 8.5 mg/dL (8.4-10.2); CREATININE, serum 1.56 (0.52-1.25); POTASSIUM 4.7 mmol/L (3.4-5.0)
[2020-05-24 08:30] VITALS: BP 131/54; PULSE 76; TEMP 98.6
[2020-05-24] MEDS ORDERED: CARAFATE 1GM1 G PO (08:37)
--- NOTE | 2020-05-24 09:28 | NUR ---
PATIENT IS RESTING IN BED THIS MORNING. PATIENT HAS ALERTED HER THAT SHE GETS TO GO HOME SO SHE IS WAITING ON HER . PATIENT IS ALERT AND ORIENTATED THIS MORNING WITH NO ISSUES. PATIENT HAD SOME DISCOMFORT IN HER LEFT SHOULDER BUT HAD SOME PAIN MEDICATION THIS MORNING ALREADY.
--- NOTE | 2020-05-24 10:02 | NUR ---
PATIENT WAS READ HER DISCHARGE INSTRUCTIONS. SHE WAS IN AGREEANCE WITH THEM. IV WAS TAKEN OUT WITH NO DIFFICULTIES. PATIENT WANTED TO READ PAPERWORK AT HOME. PATIENT WAS WHEELED DOWN TO THE ENTRANCE IN A WHEELCHAIR AND HER WITH HER.
== END 2020-05-24 10:00 | disposition home or self-care (01) ==
LOC: COL.ER 05:32 → MEDICAL 07:48
PROVIDERS: Emergency Medicine; ADMIT Internal Medicine Pulmonary Disease
DX: K92.0 Hematemesis (principal); K21.0 Gastro-esophageal reflux disease with esophagitis; K31.89 Other diseases of stomach and duodenum; F41.9 Anxiety disorder, unspecified; I25.10 Atherosclerotic heart disease of native coronary artery without angina pectoris; F32.9 Major depressive disorder, single episode, unspecified; I12.9 Hypertensive chronic kidney disease with stage 1 through stage 4 chronic kidney disease, or unspecified chronic kidney disease; D72.829 Elevated white blood cell count, unspecified; E11.22 Type 2 diabetes mellitus with diabetic chronic kidney disease; N18.3 Chronic kidney disease, stage 3 (moderate); D63.1 Anemia in chronic kidney disease; M19.90 Unspecified osteoarthritis, unspecified site; J45.909 Unspecified asthma, uncomplicated; Z87.891 Personal history of nicotine dependence; Z85.3 Personal history of malignant neoplasm of breast; Z96.612 Presence of left artificial shoulder joint; Z79.82 Long term (current) use of aspirin
CPT/HCPCS: 99239; C9113; G0378; J1815; J2405; J2550; J2704; J7030

== ENCOUNTER → 2020-08-21 | Outpatient (CLI) | payer MEDICARE, OTHER ==
[~2020-08-21] MED LIST changes: +CARAFATE 1GM1 G PO; +NORVASC2.5 MG PO; +ROXICODONE 55 MG/TAB PO; +VITAMIN C500 MG PO
== END ==
LOC: MC.RAD 13:30
DX: Z12.31 Encounter for screening mammogram for malignant neoplasm of breast (principal); Z85.3 Personal history of malignant neoplasm of breast

== ENCOUNTER → 2020-12-29 | Outpatient (CLI) | payer MEDICARE, OTHER | LOC: MC.RAD 09:56 | DX: C50.012 Malignant neoplasm of nipple and areola, left female breast (principal); I10 Essential (primary) hypertension; Z98.890 Other specified postprocedural states; Z92.3 Personal history of irradiation ==

== ENCOUNTER 2021-08-20 15:16 | Inpatient (IN) | payer MEDICARE, OTHER ==
[2021-08-20] VITALS (8 sets, daily range): BP systolic 113–141; BP diastolic 37–76; PULSE 72–90; TEMP 98–99
[~2021-08-20] VITALS: Ht 154.9 cm; Wt 78.8 kg
[2021-08-20 15:50] LABS: BASO # 0.1 K/mm3 (0.0-0.2); BASO % 0.7 % (0.0-2.0); EOS # 0.5 K/mm3 (0.0-0.7); EOS % 4.7 % (0-4.0); GRAN # 7.4 K/mm3 (1.4-6.5); GRAN % 71.9 % (42.2-75.2); LYMPH # 1.4 K/mm3 (1.2-3.4); LYMPH % 13.4 % (20.0-51.0); MEAN CELL VOLUME 87 fl (80.0-100.0); MEAN CORPUSCULAR HGB CONC 32 g/dl (33.0-37.0); MEAN PLATELET VOLUME 9.9 fl (7.4-10.4); MONO # 0.8 K/mm3 (0.1-0.6); MONO % 7.9 % (1.7-9.3); PLATELET COUNT 295 K/mm3 (130-400); REDCELL DISTRIBUTION WIDTH-CV 16.2 % (11.5-14.5)
[2021-08-20 15:51] LABS: MEAN CORPUSCULAR HEMOGLOBIN 28 pg (27.0-31.0)
[2021-08-20 15:52] LABS: HEMATOCRIT 17.3 % (37.0-47.0); HEMOGLOBIN 5.6 g/dl (12.5-16.0)
[2021-08-20 16:08] LABS: INR 1.7 (0.8-3.0); PROTHROMBIN TIME 19.3 SECONDS (9.7-12.8)
[2021-08-20 16:15] LABS: ALBUMIN 3.7 gm/dL (3.4-4.8); BILIRUBIN,TOTAL 0.5 mg/dL (0.2-1.2); CALCIUM 8.9 mg/dL (8.4-10.2); CREATININE, serum 1.77 mg/dL (0.57-1.11); POTASSIUM 4.4 mmol/L (3.5-4.5); TOTAL PROTEIN 6.7 gm/dL (6.2-8.1)
[2021-08-20 16:21] LABS: TROPONIN-I 0.022 ng/mL (0.00-0.033)
[2021-08-20] MEDS ORDERED: PRINIVIL2.5 MG PO (17:39)
[2021-08-20] MEDS ORDERED: LIPITOR 40MG TA40 MG PO (17:40)
[2021-08-20] MEDS ORDERED: ZYLOPRIM 100MG100 MG PO (17:45)
--- NOTE | 2021-08-20 18:40 | NUR ---
PT BROUGHT UP TO THE UNIT AT THIS TIME. WILL PASS REPORT ALONG TO ONCOMING RN.
--- NOTE | 2021-08-20 18:55 | NUR ---
Bedside shift report received. 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 Blood currently infusing-vital sign machine set for intervals-VS currently stable. IV to right AC infusing without complication. Clear liquid diet given. Teaching complete on admission process and plan of care. Denies questions/concerns. Call light in reach. Will monitor.
--- NOTE | 2021-08-20 23:11 | NUR ---
Blood transfusion started at this time per admin protocol with two nurse verification-this nurse and ADEEL Clark.
[2021-08-21] VITALS (9 sets, daily range): BP systolic 106–143; BP diastolic 31–94; PULSE 66–82; TEMP 79.9–98.4
--- NOTE | 2021-08-21 01:07 | NUR ---
Blood transfusion complete at this time. VS remained stable with no s/s of adverse reaction noted. Repeat H/H for [address] order.
--- NOTE | 2021-08-21 06:34 | NUR ---
PT ASLEEP IN BED. HER BLOOD TRANSFUSIONS WENT WELL. VS REMAIN STABLE. CALL LIGHT WITHIN REACH.
[2021-08-21 07:28] LABS: MEAN CELL VOLUME 87 fl (80.0-100.0); MEAN CORPUSCULAR HGB CONC 33 g/dl (33.0-37.0); MEAN PLATELET VOLUME 10.2 fl (7.4-10.4); PLATELET COUNT 247 K/mm3 (130-400); RED BLOOD COUNT 3.26 M/mm3 (4.10-5.30); REDCELL DISTRIBUTION WIDTH-CV 15.5 % (11.5-14.5)
[2021-08-21 07:30] LABS: HEMATOCRIT 28.3 % (37.0-47.0); HEMOGLOBIN 9.4 g/dl (12.5-16.0); MEAN CORPUSCULAR HEMOGLOBIN 29 pg (27.0-31.0)
[2021-08-21 07:54] LABS: CALCIUM 9.5 mg/dL (8.4-10.2); CREATININE, serum 1.47 mg/dL (0.57-1.11); POTASSIUM 4.1 mmol/L (3.5-4.5)
--- NOTE | 2021-08-21 08:00 | NUR ---
Patient laying in bed A&Ox4. VSS. IV CDI. No complaints of pain. NPO pending placement at [facility], waiting on an open bed. No further needs expressed. Call light within reach
--- NOTE | 2021-08-21 09:12 | NUR ---
DANITA met with the patient to discuss discharge plan. The patient lives in [place] with her , Luis (ph#[phone]). She reports independence with ADLs and does not have any DME. The patient's PCP is Dr. Kenzie Palomino and she receives her medications from [facility]. She reports no difficulties obtaining her meds. The patient does not have a DPOA-HC, but she was interested in obtaining a form. DANITA provided. The patient plans on returning home with her upon discharge. The patient may be transferring to [facility]. No additional needs at this time.
[2021-08-21 15:35] LABS: HEMATOCRIT 27.8 % (37.0-47.0)
--- NOTE | 2021-08-21 18:36 | NUR ---
Patient had an uneventful day. A&Ox4. VSS. IV CDI. Denies pain and discomfort. NPO most of the day, diet changed to ADA and patient tolerating well. Denies any BM. Patient independent in the room. Call light within reach. Patient to go to OB floor. Report called to ADEEL Barry
--- NOTE | 2021-08-21 18:45 | NUR ---
Patient to room 221 from medical via wheelchair. She is alert and oriented. Plan of care is reviewed. Patient oriented to room and call light.
[2021-08-22] VITALS: BP 118/72; PULSE 82; TEMP 97.6
[2021-08-22 04:00] VITALS: BP 134/60; PULSE 80; TEMP 97.8
[2021-08-22 08:00] LABS: BASO # 0.1 K/mm3 (0.0-0.2); BASO % 0.7 % (0.0-2.0); EOS # 0.4 K/mm3 (0.0-0.7); EOS % 5.5 % (0-4.0); GRAN # 5.2 K/mm3 (1.4-6.5); GRAN % 69.5 % (42.2-75.2); LYMPH % 12.8 % (20.0-51.0); MEAN CELL VOLUME 86 fl (80.0-100.0); MEAN CORPUSCULAR HGB CONC 33 g/dl (33.0-37.0); MEAN PLATELET VOLUME 9.8 fl (7.4-10.4); MONO # 0.8 K/mm3 (0.1-0.6); MONO % 10.7 % (1.7-9.3); PLATELET COUNT 258 K/mm3 (130-400); RED BLOOD COUNT 3.24 M/mm3 (4.10-5.30); REDCELL DISTRIBUTION WIDTH-CV 15.5 % (11.5-14.5)
[2021-08-22 08:03] LABS: HEMATOCRIT 27.9 % (37.0-47.0); HEMOGLOBIN 9.2 g/dl (12.5-16.0); MEAN CORPUSCULAR HEMOGLOBIN 28 pg (27.0-31.0)
[2021-08-22 08:19] LABS: CALCIUM 9.8 mg/dL (8.4-10.2); CREATININE, serum 1.35 mg/dL (0.57-1.11); POTASSIUM 4.1 mmol/L (3.5-4.5)
[2021-08-22 09:00] VITALS: BP 142/40; PULSE 79; TEMP 98.1
[2021-08-22 11:55] VITALS: BP 126/64; PULSE 75; TEMP 98.2
[2021-08-22] MEDS ORDERED: PROTONIX 40MG T40 MG PO (12:28)
[2021-08-22] MEDS ORDERED: ELIQUIS 5MG PO (12:30)
--- NOTE | 2021-08-22 13:08 | NUR ---
Chaplain hope and offered support with patient.
== END 2021-08-22 13:00 | disposition home or self-care (01) | DRG 812 ==
LOC: COL.ER 15:16 → MEDICAL 17:00 → OB 08-21 18:39
PROVIDERS: Physician Assistant; ADMIT Internal Medicine
DX: D64.9 Anemia, unspecified (principal); E87.2 Acidosis; I82.622 Acute embolism and thrombosis of deep veins of left upper extremity; N17.9 Acute kidney failure, unspecified; K31.7 Polyp of stomach and duodenum; K21.9 Gastro-esophageal reflux disease without esophagitis; Z79.4 Long term (current) use of insulin; F32.A Depression, unspecified; E11.22 Type 2 diabetes mellitus with diabetic chronic kidney disease; I12.9 Hypertensive chronic kidney disease with stage 1 through stage 4 chronic kidney disease, or unspecified chronic kidney disease; N18.9 Chronic kidney disease, unspecified
CPT/HCPCS: OP; 99232-AI; 99239; C9113; G0378; J1815; P9016; P9040

== ENCOUNTER 2021-11-30 09:36 | Emergency (ER) | payer OTHER, MEDICARE ==
[~2021-11-30] VITALS: Ht 154.9 cm; Wt 75.0 kg
[~2021-11-30 09:36] MED LIST changes: +ELIQUIS 5MG PO; +PRINIVIL2.5 MG PO; +ZYLOPRIM 100MG100 MG PO
[2021-11-30 09:37] VITALS: TEMP 97.8
[2021-11-30 10:37] LABS: BASO # 0.1 K/mm3 (0.0-0.2); BASO % 1.1 % (0.0-2.0); EOS # 0.5 K/mm3 (0.0-0.7); EOS % 6.2 % (0.0-4.0); GRAN # 5.2 K/mm3 (1.4-6.5); GRAN % 69.1 % (42.2-75.2); HEMOGLOBIN 10.2 g/dl (12.5-16.0); LYMPH % 12.8 % (20.0-51.0); MEAN CELL VOLUME 75 fl (80.0-100.0); MEAN CORPUSCULAR HEMOGLOBIN 23 pg (27-31); MEAN CORPUSCULAR HGB CONC 31 g/dl (33.0-37.0); MEAN PLATELET VOLUME 9.7 fl (7.4-10.4); MONO # 0.8 K/mm3 (0.1-0.6); MONO % 10.1 % (1.7-9.3); PLATELET COUNT 300 K/mm3 (130-400); RED BLOOD COUNT 4.44 M/mm3 (4.10-5.30); REDCELL DISTRIBUTION WIDTH-CV 17.5 % (11.5-14.5)
[2021-11-30 10:43] LABS: ALBUMIN 3.9 gm/dL (3.4-4.8); BILIRUBIN,TOTAL 0.6 mg/dL (0.2-1.2); CALCIUM 9.1 mg/dL (8.4-10.2); CREATININE, serum 1.55 mg/dL (0.57-1.11); HEMATOCRIT 33.4 % (37.0-47.0); POTASSIUM 4.4 mmol/L (3.5-4.5); TOTAL PROTEIN 7.5 gm/dL (6.2-8.1)
[2021-11-30] MEDS ORDERED: NAPROSYN 2250 MG/TAB PO (13:04)
[2021-11-30 13:34] VITALS: BP 149/63; PULSE 69
== END 2021-11-30 13:34 | disposition home or self-care (01) ==
LOC: COL.ER 09:36
PROVIDERS: Emergency Medicine
DX: S89.91XA Unspecified injury of right lower leg, initial encounter (principal); M25.461 Effusion, right knee; R51.9 Headache, unspecified; M54.2 Cervicalgia; V43.52XA Car driver injured in collision with other type car in traffic accident, initial encounter

== ENCOUNTER → 2022-11-18 | Outpatient (CLI) | payer MEDICARE, OTHER ==
[~2022-11-18] MED LIST changes: +NAPROSYN 2250 MG/TAB PO
== END ==
LOC: COL.RAD 12:03
DX: K83.8 Other specified diseases of biliary tract (principal); K75.81 Nonalcoholic steatohepatitis (NASH); R74.8 Abnormal levels of other serum enzymes

== ENCOUNTER → 2022-12-21 | Outpatient (CLI) | payer MEDICARE, OTHER | LOC: MC.RAD 13:49 | DX: Z12.31 Encounter for screening mammogram for malignant neoplasm of breast (principal) ==

== ENCOUNTER 2023-08-27 14:16 | Emergency (ER) | payer MEDICARE, OTHER ==
[~2023-08-27] VITALS: Ht 162.6 cm; Wt 82.3 kg
[2023-08-27 14:33] VITALS: TEMP 98
[2023-08-27 18:15] LABS: HEMATOCRIT 37.3 % (37.0-47.0); HEMOGLOBIN 12.2 g/dl (12.5-16.0); MEAN CELL VOLUME 91 fl (80.0-100.0); MEAN CORPUSCULAR HEMOGLOBIN 30 pg (27-31); MEAN CORPUSCULAR HGB CONC 33 g/dl (33.0-37.0); MEAN PLATELET VOLUME 9.9 fl (7.4-10.4); PLATELET COUNT 265 K/mm3 (130-400); RED BLOOD COUNT 4.09 M/mm3 (4.10-5.30)
[2023-08-27 18:36] LABS: ALBUMIN 3.7 gm/dL (3.4-4.8); BILIRUBIN,TOTAL 0.5 mg/dL (0.2-1.2); C-REACTIVE PROTEIN 0.55 mg/dL (0.00-0.50); CREATININE, serum 1.3 mg/dL (0.57-1.11); POTASSIUM 4.2 mmol/L (3.5-4.5); TOTAL PROTEIN 7.5 gm/dL (6.2-8.1)
[2023-08-27 18:42] LABS: TROPONIN-I 0.01 ng/mL (0.00-0.033)
[2023-08-27 19:08] LABS: BASOPHIL 3 % (0-2); EOSINOPHIL 4 % (0-4); LYMPHOCYTE 18 % (20.0-51.0); NEUTROPHILS 68 % (42.0-75.2); PLATELET ESTIMATE NORMAL (NORMAL)
[2023-08-27] MEDS ORDERED: PREDNISONE20 MG PO ×3 (19:14→20:44)
[2023-08-27 19:26] VITALS: BP 138/82; PULSE 75
== END 2023-08-27 19:35 | disposition home or self-care (01) ==
LOC: COL.ER 14:16
PROVIDERS: Nurse Practitioner
DX: J40 Bronchitis, not specified as acute or chronic (principal); Z86.718 Personal history of other venous thrombosis and embolism; Z79.01 Long term (current) use of anticoagulants; Z87.891 Personal history of nicotine dependence
CPT/HCPCS: J7512

== ENCOUNTER 2023-12-01 03:53 | Emergency (ER) | payer MEDICARE, OTHER ==
[~2023-12-01] VITALS: Ht 154.9 cm; Wt 84.1 kg
[~2023-12-01 03:53] MED LIST changes: +DOXYCYCLINE 10100 MG PO; +IPRATROPIUM BROM3 M1 IH; +NEB MC; +PREDNISONE20 MG PO
[2023-12-01 04:00] VITALS: TEMP 98
[2023-12-01] MEDS ORDERED: NORCO 325 MG-51 TAB PO (06:05)
[2023-12-01 06:21] VITALS: BP 98/61; PULSE 65
== END 2023-12-01 06:21 | disposition home or self-care (01) ==
LOC: COL.ER 03:53
DX: S40.012A Contusion of left shoulder, initial encounter (principal); S20.212A Contusion of left front wall of thorax, initial encounter; S80.11XA Contusion of right lower leg, initial encounter; S30.1XXA Contusion of abdominal wall, initial encounter; Z86.718 Personal history of other venous thrombosis and embolism; Z96.612 Presence of left artificial shoulder joint; Z87.891 Personal history of nicotine dependence; Z79.01 Long term (current) use of anticoagulants; W01.0XXA Fall on same level from slipping, tripping and stumbling without subsequent striking against object, initial encounter
CPT/HCPCS: A9284

== ENCOUNTER 2024-01-16 10:33 | Emergency (ER) | payer MEDICARE, OTHER ==
[~2024-01-16] VITALS: Ht 154.9 cm; Wt 81.8 kg
[2024-01-16 10:46] VITALS: BP 109/63; TEMP 97.7
[2024-01-16 11:53] LABS: BASO # 0.1 K/mm3 (0.0-0.2); BASO % 0.7 % (0.0-2.0); EOS # 0.5 K/mm3 (0.0-0.7); EOS % 4.7 % (0.0-4.0); GRAN # 6.6 K/mm3 (1.4-6.5); GRAN % 69.1 % (42.2-75.2); HEMOGLOBIN 11.2 g/dl (12.5-16.0); LYMPH # 1.5 K/mm3 (1.2-3.4); MEAN CELL VOLUME 88 fl (80.0-100.0); MEAN CORPUSCULAR HEMOGLOBIN 28 pg (27-31); MEAN CORPUSCULAR HGB CONC 32 g/dl (33.0-37.0); MEAN PLATELET VOLUME 10.2 fl (7.4-10.4); MONO # 0.8 K/mm3 (0.1-0.6); MONO % 8.9 % (1.7-9.3); PLATELET COUNT 274 K/mm3 (130-400); RED BLOOD COUNT 4.02 M/mm3 (4.10-5.30); REDCELL DISTRIBUTION WIDTH-CV 14.7 % (11.5-14.5)
[2024-01-16 11:59] LABS: HEMATOCRIT 35.5 % (37.0-47.0)
[2024-01-16] MEDS ORDERED: Ibuprofen 400 MG TAB PO ONE (12:15)
[2024-01-16 12:22] LABS: ERYTHROCYTE SEDIMENTATION RATE 34 mm/hr (0-30)
[2024-01-16 12:39] LABS: ALBUMIN 3.6 g/dL (3.4-4.8); BILIRUBIN,TOTAL 0.7 mg/dL (0.2-1.2); C-REACTIVE PROTEIN 0.5 mg/dL (0.00-0.50); CALCIUM 10.2 mg/dL (8.4-10.2); CREATININE, serum 1.62 mg/dL (0.57-1.11); POTASSIUM 4.5 mEq/L (3.5-4.5); TOTAL PROTEIN 7.5 g/dl (6.2-8.1)
[2024-01-16 14:50] VITALS: PULSE 71
== END 2024-01-16 14:50 | disposition home or self-care (01) ==
LOC: COL.ER 10:33
PROVIDERS: Emergency Medicine
DX: M25.512 Pain in left shoulder (principal); R70.0 Elevated erythrocyte sedimentation rate; Z96.612 Presence of left artificial shoulder joint; W19.XXXA Unspecified fall, initial encounter

== ENCOUNTER → 2024-04-25 | Outpatient (CLI) | payer MEDICARE, OTHER | LOC: COL.RAD 09:35 | DX: K75.81 Nonalcoholic steatohepatitis (NASH) (principal) ==